=== PATIENT | female | born 1975 | race Asian ===

== ENCOUNTER 2019-11-16 02:22 | Emergency (ER) | payer MEDICAID ==
[~2019-11-16] VITALS: Ht 157.5 cm; Wt 61.2 kg
[2019-11-16 02:34] VITALS: Ht 157.5 cm; Wt 61.2 kg
[2019-11-16 04:04] VITALS: BP 109/63
== END 2019-11-16 04:04 | disposition home or self-care (01) ==
LOC: ED 02:22
DX: L03.211 Cellulitis of face (principal); Z88.1 Allergy status to other antibiotic agents